=== PATIENT | male | born 1995 | race Caucasian/White ===

== ENCOUNTER 2017-04-26 18:28 | Emergency (ER) | payer BC ==
[2017-04-26 18:34] VITALS: BP 134/70
--- NOTE | 2017-04-26 19:47 | UC ---
Head Injury HPI - HPI Summary HPI Summary: his nose on anothers' head while playing sports yesterday, nasal pain and nausea - History Of Current Complaint Chief Complaint: UCHeadInjury Stated Complaint: HEAD INJURY Time Seen by Provider: 04/26/17 19:37 Hx Obtained From: Patient Mechanism Of Injury: hit heads with another player Onset/Duration: Sudden Onset, Lasting Days - 1 Severity Currently: Moderate Severity Initially: Moderate Pain Intensity: 6 Pain Scale Used: 0-10 Numeric Character: Dull, Throbbing Aggravating Factor(s): Other - touch Alleviating Factor(s): Nothing Associated Signs And Symptoms: Positive: Nausea - slight. Negative: Confusion, Memory Loss, Epistaxis, Vomiting - Allergies/Home Medications Allergies/Adverse Reactions: Allergies Allergy/AdvReac Type Severity Reaction Status Date / Time No Known Allergies Allergy Verified 04/26/17 18:34 Home Medications: Home Medications NK [No Home Medications Reported] 04/26/17 [History Confirmed 04/26/17] PMH/Surg Hx/FS Hx/Imm Hx Previously Healthy: Yes - Surgical History Surgical History: None - Family History Known Family History: Positive: None - Social History Occupation: Student Lives: With Family Alcohol Use: Occasionally Substance Use Type: None Smoking Status (MU): Never Smoked Tobacco Review of Systems Constitutional: Negative Skin: Negative Eyes: Negative ENT: Other - nasal tenderness no bleeding Respiratory: Negative Cardiovascular: Negative Gastrointestinal: Negative Genitourinary: Negative Motor: Negative Neurovascular: Negative Musculoskeletal: Negative Neurological: Headache Psychological: Negative All Other Systems Reviewed And Are Negative: Yes Physical Exam Triage Information Reviewed: Yes Appearance: Well-Appearing, No Pain Distress, Well-Nourished Vital Signs: Initial Vital Signs Temp 98.9 F 04/26/17 18:31 Pulse 75 04/26/17 18:31 Resp 18 04/26/17 18:31 BP 134/70 04/26/17 18:31 Pulse Ox 100 04/26/17 18:31 Vital Signs Reviewed: Yes Eye Exam: Normal Eyes: Positive: Conjunctiva Clear, Other: - perrla, eomi, fundascopic exam wnl ENT Exam: Normal ENT: Positive: Normal ENT inspection, Hearing grossly normal, Pharynx normal, TMs normal, Other: - no septal hematoma. Negative: Nasal congestion, Nasal drainage, Trismus, Muffled/hoarse voice Dental Exam: Normal Neck exam: Normal Neck: Positive: Supple, Nontender, No Lymphadenopathy Respiratory Exam: Normal Respiratory: Positive: Chest non-tender, Lungs clear, Normal breath sounds, No respiratory distress, No accessory muscle use Cardiovascular Exam: Normal Cardiovascular: Positive: RRR, Pulses Normal, Brisk Capillary Refill Musculoskeletal Exam: Normal Musculoskeletal: Positive: Strength Intact, ROM Intact, No Edema Neurological Exam: Normal Neurological: Positive: Alert, Muscle Tone Normal, Other: - no pronator drift, negative rhomberg---heel baptiste bilateral wnl Psychological Exam: Normal Skin Exam: Normal Diagnostics - Radiology No standard instances Xray Interpretation: No Acute Changes Radiology Interpretation Completed By: Radiologist Head Injury Course/Dx - Course Course Of Treatment: ice, rest, tylenol, ibuprofen, follow with [facility] this week - Differential Dx/Diagnosis Differential Diagnosis/HQI/PQRI: Concussion With LOC, Contusion, Intracranial Bleed, Nasal Fracture Provider Diagnoses: Nasal contusion, head injury Discharge - Discharge Plan Condition: Stable Disposition: HOME Patient Education Materials: Ibuprofen (By mouth), Head Injury (ED), Contusion in Adults (ED), Ice Pack Application (ED), Nasal Contusion (ED) Referrals: [facility] [Primary Care Provider] - If Needed
--- NOTE | 2017-04-26 20:13 | RAD ---
HISTORY: The nasal injury COMPARISONS: None VIEWS: 3, Salazar views of the face, bilateral coned down lateral views of the nasal bones FINDINGS: BONE DENSITY: Normal. BONES: There is no displaced fracture. The orbital rims are intact. JOINTS: There is no arthropathy. ALIGNMENT: There is no dislocation. SOFT TISSUES: Unremarkable. OTHER FINDINGS: None. IMPRESSION: NO DISPLACED NASAL BONE FRACTURE.. IF SYMPTOMS PERSIST, RECOMMEND REPEAT IMAGING.
== END 2017-04-26 20:58 | disposition home or self-care (01) ==
LOC: UCEAST 18:28
DX: S09.90XA Unspecified injury of head, initial encounter (principal); S00.33XA Contusion of nose, initial encounter; X58.XXXA Exposure to other specified factors, initial encounter; Y93.79 Activity, other specified sports and athletics
CPT/HCPCS: 70160; 99201; G0463